=== PATIENT | female | born 1990 | race Caucasian/White ===

== ENCOUNTER 2020-05-10 12:13 | Emergency (ER) | payer OTHER, SELFPAY ==
[2020-05-10 12:20] VITALS: BP 146/92; PULSE 78; RESP 15; TEMP 37.1; O2SAT 96; BMI 43.9
[2020-05-10 12:21] VITALS: PULSE 74; O2SAT 97
[2020-05-10 12:22] VITALS: BP 146/92; PULSE 78; O2SAT 96
--- NOTE | 2020-05-10 12:26 | DI.US.S_ITS ---
PROCEDURE: US ABDOMEN LIMITED INDICATIONS: RUQ PAIN TECHNIQUE: Real-time focused scanning was performed of the abdomen, with image documentation. COMPARISON: None. FINDINGS: This study is limited by body habitus. No findings of gallstones or sludge are seen. The gallbladder wall is not thickened, measuring 3 mm or less. No specific pericholecystic fluid is seen. The sonographic Ferrer sign is negative. There is no biliary dilatation, the common bile duct measures 3 mm. The liver is normal in size and demonstrates no focal lesions. The pancreas is not well-seen. IMPRESSION: The gallbladder demonstrates a normal sonographic appearance. No biliary dilatation is seen. Dictated by: Freddie Stanford M.D. on 05/10/2020 at 12:10 Approved by: Freddie Stanford M.D. on 05/10/2020 at 12:11
--- NOTE | 2020-05-10 12:29 | ED_ITS ---
HPI - Abdominal Pain <PRATIMA Dunbar - Last Filed: 05/10/20 19:59> General Chief Complaint: Abdominal Pain Stated Complaint: Stomach Pain, Possible GallBladder Issue Time Seen by Provider: 05/10/20 12:24 Source: patient Mode of arrival: Ambulatory Limitations: no limitations History of Present Illness HPI narrative: 29yo female presents to the emergency department for epigastric pain. She states this occurred last night and has continued. Patient states the pain is mostly constant with a few intermittent episodes, she describes it as a sharp stabbing pain that radiates to her back. Pain is worse with palpation. Denies worsening pain with eating or drinking. Patient reports intermittent nausea. She denies fevers, chills, chest pain, shortness of breath, vomiting, diarrhea, blood in stool, burning in the chest, or other concerns. Patient denies any major abdominal surgeries or abdominal issues. She states this does not feel like heartburn, she has had heartburn in the past. 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 Related Data Allergies Allergy/AdvReac Type Severity Reaction Status Date / Time acetaminophen [From Vicodin] Allergy Verified 05/10/20 12:23 hydrocodone [From Vicodin] Allergy Verified 05/10/20 12:23 Review of Systems <PRATIMA Dunbar - Last Filed: 05/10/20 19:59> Review of Systems Narrative: REVIEW OF SYSTEMS: GENERAL: Denies fever, chills, malaise, or wt. loss. HENT: No head trauma. EYES: No vision changes. CARDIOVASCULAR: No chest pain. RESPIRATORY: No shortness of breath or cough. GASTROINTESTINAL: Complains of epigastric abdominal pain, see HPI GENITOURINARY: No flank pain, urinary incontinence, hesitancy, frequency, or dysuria. No vaginal discharge or dyspareunia. Denies concerns for STIs MUSCULOSKELETAL: No pain, weakness, or trauma. INTEGUMENTARY: No rash, lesions, or pruritus. NEURO: No numbness, tingling, memory loss, confusion, or headaches. PSYCH: No behavior or mood changes. Patient History <PRATIMA Dunbar - Last Filed: 05/10/20 19:59> Medical History No significant family history (Acute) Social History Smoking Status: Unknown if ever smoked Smoking Status: Unknown if ever smoked alcohol intake frequency: holidays/special occasions only Substance Use Type: does not use Exam <PRATIMA Dunbar - Last Filed: 05/10/20 19:59> Initial Vital Signs Initial Vital Signs: Vital Signs Temperature 98.8 F 05/10/20 12:20 Pulse Rate 78 05/10/20 12:20 Respiratory Rate 15 05/10/20 12:20 Blood Pressure 146/92 H 05/10/20 12:20 Pulse Oximetry 96 05/10/20 12:20 PHYSICAL EXAMINATION: GENERAL: Well groomed, alert, and cooperative. Answers questions promptly and appropriately. Vital signs noted. HENT: Normocephalic, atraumatic. Hearing intact. Oral mucosa is pink and moist. EYES: Conjunctiva pink, sclera white, no periorbital swelling. CARDIOVASCULAR: S1 and S2 sounds normal. Regular rate and rhythm, no murmurs, clicks, or bruits. No pedal edema. RESPIRATORY: Normal respiratory rate, trachea midline, airway patent. No stridor, nasal flaring or accessory muscle use. Lungs are clear in all flores without wheeze, rhonchi, or crackles. GASTROINTESTINAL: Bowel sounds normoactive. Epigastric tenderness, slight right upper quadrant tenderness. No organomegaly, no palpable masses. GENITALURINARY: No flank tenderness. MUSCULOSKELETAL: Normal gait and coordination. Equal tone and mass bilaterally. EXTREMITIES: CMS intact, no pedal edema. SKIN: Warm, dry, soft, appropriate color for ethnicity. NEURO: Alert and Oriented X 3. Good coordination. No ataxia, or sensory deficits, or cognitive issues. PSYCH: Appropriate affect and mood. <Nawaf Augustin DO - Last Filed: 05/11/20 06:59> Initial Vital Signs Initial Vital Signs: Vital Signs Temperature 98.8 F 05/10/20 12:20 Pulse Rate 78 05/10/20 12:20 Respiratory Rate 15 05/10/20 12:20 Blood Pressure 146/92 H 05/10/20 12:20 Pulse Oximetry 96 05/10/20 12:20 Course <PRATIMA Dunbar - Last Filed: 05/10/20 19:59> Course Course Narrative: Discussed with patient that labs and ultrasound were negative. CT recommended due to pain radiating to back to assess for other etiologies such as hernia or aortic aneurysm. Patient consented. Orders Ordered: Discontinued Medications Sodium Chloride (Normal Saline 0.9%) 500 mls @ 1,000 mls/hr IV BOLUS ONE Stop: 05/10/20 12:55 Last Infusion: 05/10/20 14:06 Dose: 0 mls/hr Documented by: Admin: 05/10/20 12:52 Dose: 1,000 mls/hr Documented by: KRISTINA Consultations Consultation #1: Patient staffed with Dr. Augustin discussed test, test results, and plan of care. Vital Signs Vital signs: Vital Signs - 8 hr 05/10/20 12:20 05/10/20 12:21 05/10/20 12:22 Temperature 98.8 F Pulse Rate 78 74 78 Respiratory Rate 15 Blood Pressure 146/92 H 146/92 H Pulse Oximetry 96 97 96 05/10/20 15:32 Temperature Pulse Rate 76 Respiratory Rate 16 Blood Pressure 152/95 H Pulse Oximetry 97 <Nawaf Augustin DO - Last Filed: 05/11/20 06:59> Orders Ordered: Discontinued Medications Sodium Chloride (Normal Saline 0.9%) 500 mls @ 1,000 mls/hr IV BOLUS ONE Stop: 05/10/20 12:55 Last Infusion: 05/10/20 14:06 Dose: 0 mls/hr Documented by: Admin: 05/10/20 12:52 Dose: 1,000 mls/hr Documented by: KRISTINA Vital Signs Vital signs: Vital Signs - 8 hr 05/10/20 12:20 05/10/20 12:21 05/10/20 12:22 Temperature 98.8 F Pulse Rate 78 74 78 Respiratory Rate 15 Blood Pressure 146/92 H 146/92 H Pulse Oximetry 96 97 96 05/10/20 15:32 Temperature Pulse Rate 76 Respiratory Rate 16 Blood Pressure 152/95 H Pulse Oximetry 97 MDM - Abdominal Pain <PRATIMA Dunbar - Last Filed: 05/10/20 19:59> Medical Records Attestation: I reviewed the patient's medical records. Lab Data Attestation: I reviewed the patient's lab results. Result diagrams: 05/10/20 12:30 05/10/20 12:30 Labs: Lab Results 05/10/20 05/10/20 Range/Units 12:30 12:30 WBC 9.0 (4.5-11.0) X10^3/uL RBC 4.46 (4.0-5.2) X10^6/uL Hgb 12.9 (12.0-16.0) g/dL Hct 38.5 (36-46) % MCV 86.3 (80-100) fL MCH 28.9 (26-34) PG MCHC 33.5 (30-36) % RDW 14.1 (11.6-14.8) % Plt Count 351 (150-400) X10^3/uL Neut % (Auto) 64.1 (50-75) % Lymph % (Auto) 25.5 (25-40) % [place] % (Auto) 6.6 (3-14) % Eos % (Auto) 2.5 (2-4) % Baso % (Auto) 1.3 (0-2) % Neut # (Auto) 5700 (2667-0141) /uL Lymph # (Auto) 2300 (3660-2415) /uL [place] # (Auto) 600 (0-900) /uL Eos # (Auto) 200 (0-450) /uL Baso # (Auto) 100 (0-100) /uL Sodium 137 (137-145) mmol/L Potassium 4.0 (3.4-5.1) mmol/L Chloride 104 (98-107) mmol/L Carbon Dioxide 26 (22-32) mmol/L BUN 17 (7-17) mg/dL Creatinine 0.65 (0.52-1.04) mg/dL Estimated GFR > 60.0 (>60) mL/min BUN/Creatinine Ratio 26.2 H (6-22) Glucose 87 (70-100) mg/dL Calcium 9.8 (8.4-10.2) mg/dL Total Bilirubin 0.4 (0.2-1.3) mg/dL AST 47 H (14-36) IU/L ALT 52 H (<35) IU/L Alkaline Phosphatase 90 (38-126) U/L Total Protein 7.8 (6.3-8.2) g/dL Albumin 4.2 (3.5-5.0) g/dL Globulin 3.6 (1.7-4.1) g/dL Albumin/Globulin Ratio 1.2 (1.0-2.8) Lipase 171 (23-300) U/L Point of care testing: Point of Care Testing Test Results Negative Urine Dip Bedside Urine Glucose Negative Bedside Urine Bilirubin - Negative Bedside Urine Ketone - Negative Urine Specific [place] 1.020 Bedside Urine Occult Blood +/- Bedside Urine pH 6.0 Bedside Urine Protein - Negative Bedside Urine Urobilinogen - Negative Bedside Urine Nitrite - Negative Bedside Urine Leukocytes - Negative Esterase Imaging Data US - abdomen: Radiologist's Impression: [address] [address] Ultrasound Report Signed Patient: Linn Rucker EMR#: [id number] : 1990Acct:[id number] Age/Sex: 29 / FDate of Service: 05/10/20 Loc: ED Accession Number: [id number] Procedure: US abdomen limited Ordering Provider: Misti Thomson PROCEDURE: US ABDOMEN LIMITED INDICATIONS: RUQ PAIN TECHNIQUE: Real-time focused scanning was performed of the abdomen, with image documentation. COMPARISON: None. FINDINGS: This study is limited by body habitus. No findings of gallstones or sludge are seen. The gallbladder wall is not thickened, measuring 3 mm or less. No specific pericholecystic fluid is seen. The sonographic Ferrer sign is negative. There is no biliary dilatation, the common bile duct measures 3 mm. The liver is normal in size and demonstrates no focal lesions. The pancreas is not well-seen. IMPRESSION: The gallbladder demonstrates a normal sonographic appearance. No biliary dilatation is seen. Dictated by: Freddie Stanford M.D. on 05/10/2020 at 12:10 Approved by: Freddie Stanford M.D. on 05/10/2020 at 12:11 CT scan - abdomen/pelvis: Radiologist's Impression: [address] [address] [address] Scan Report Signed Patient: Linn Rucker EMR#: [id number] : 1990Acct:[id number] Age/Sex: 29 / FDate of Service: 05/10/20 Loc: ED Accession Number: [id number] Procedure: CT abdomen pelvis w con Ordering Provider: Misti Thomson PROCEDURE: CT ABDOMEN PELVIS W CON INDICATIONS: Epigastric pain radiating to back TECHNIQUE: After the administration of intravenous contrast, 5 mm thick sections acquired from the diaphragm to the symphysis. 5 mm coronal and sagittal reformats were acquired. For radiation dose reduction, the following was used: automated exposure control, adjustment of mA and/or kV according to patient size. COMPARISON: [facility], , ABDOMEN LIMITED, 05/10/2020, 12:42. FINDINGS: Image quality: Excellent. ABDOMEN: Lung bases: Lung bases are clear. Heart size is normal. Solid organs: Liver is normal in size and enhancement. Gallbladder is normal. Biliary system is non dilated. Pancreas enhances normally. Spleen is normal in size and enhancement. No adrenal nodules. Kidneys demonstrate normal size and enhancement, without hydronephrosis. There are cortical scars superior pole of the left and right kidneys Peritoneum and bowel: Stomach is normal in size. Bowel loops demonstrate normal wall thickness and caliber. There is a large amount of stool in colon. There is focal short segment narrowing in the sigmoid colon. No free fluid or air. Nodes and vessels: No retroperitoneal or mesenteric adenopathy by size criteria. Aorta and inferior vena cava are normal in size. Miscellaneous: Small fat containing umbilical hernia is present. PELVIS: Genitourinary: Bladder wall appears mildly thickened. Uterus and ovaries are unremarkable. Suspect a 2.5 cm corpus pseudocyst in the left ovary. Miscellaneous: No inguinal hernias or adenopathy. Bones: No suspicious bony lesions. No vertebral body compression fractures. IMPRESSION: 1. No CT findings to explain epigastric pain. 2. Focal short segment narrowing of the sigmoid colon. Differential diagnoses include peristalsis versus a stricture. A followup CT is suggested with IV and oral contrast. 3. A large amount of stool is present in colon. 4. Mild thickening of the urinary bladder wall suggesting mild cystitis. 5. Renal cortical scars in the superior pole of kidneys bilaterally. Dictated by: Sahara Rizo M.D. on 05/10/2020 at 14:55 Approved by: Sahara Rizo M.D. on 05/10/2020 at 15:06 MDM Narrative Medical decision making narrative: 29yo female presenting to the emergency department with epigastric pain. Differential includes gastritis versus GERD versus viral etiology. Less likely gallbladder or pancreatic etiology due to negative ultrasound, lipase within normal limits. Less likely aortic aneurysm due to negative CT. Patient was given very strict return precautions for new or worsening symptoms. Patient does plan of care and verbalized understanding. <Nawaf Augustin DO - Last Filed: 05/11/20 06:59> Lab Data Labs: Lab Results 05/10/20 05/10/20 Range/Units 12:30 12:30 WBC 9.0 (4.5-11.0) X10^3/uL RBC 4.46 (4.0-5.2) X10^6/uL Hgb 12.9 (12.0-16.0) g/dL Hct 38.5 (36-46) % MCV 86.3 (80-100) fL MCH 28.9 (26-34) PG MCHC 33.5 (30-36) % RDW 14.1 (11.6-14.8) % Plt Count 351 (150-400) X10^3/uL Neut % (Auto) 64.1 (50-75) % Lymph % (Auto) 25.5 (25-40) % [place] % (Auto) 6.6 (3-14) % Eos % (Auto) 2.5 (2-4) % Baso % (Auto) 1.3 (0-2) % Neut # (Auto) 5700 (6632-3213) /uL Lymph # (Auto) 2300 (9641-8758) /uL [place] # (Auto) 600 (0-900) /uL Eos # (Auto) 200 (0-450) /uL Baso # (Auto) 100 (0-100) /uL Sodium 137 (137-145) mmol/L Potassium 4.0 (3.4-5.1) mmol/L Chloride 104 (98-107) mmol/L Carbon Dioxide 26 (22-32) mmol/L BUN 17 (7-17) mg/dL Creatinine 0.65 (0.52-1.04) mg/dL Estimated GFR > 60.0 (>60) mL/min BUN/Creatinine Ratio 26.2 H (6-22) Glucose 87 (70-100) mg/dL Calcium 9.8 (8.4-10.2) mg/dL Total Bilirubin 0.4 (0.2-1.3) mg/dL AST 47 H (14-36) IU/L ALT 52 H (<35) IU/L Alkaline Phosphatase 90 (38-126) U/L Total Protein 7.8 (6.3-8.2) g/dL Albumin 4.2 (3.5-5.0) g/dL Globulin 3.6 (1.7-4.1) g/dL Albumin/Globulin Ratio 1.2 (1.0-2.8) Lipase 171 (23-300) U/L Point of care testing: Point of Care Testing Test Results Negative Urine Dip Bedside Urine Glucose Negative Bedside Urine Bilirubin - Negative Bedside Urine Ketone - Negative Urine Specific [place] 1.020 Bedside Urine Occult Blood +/- Bedside Urine pH 6.0 Bedside Urine Protein - Negative Bedside Urine Urobilinogen - Negative Bedside Urine Nitrite - Negative Bedside Urine Leukocytes - Negative Esterase Discharge Plan Departure Patient Disposition: Home Clinical Impression: Abdominal pain Qualifiers: Abdominal location: epigastric Qualified Code(s): R10.13 - Epigastric pain Discharge Date/Time: 05/10/20 15:33 Instructions: DI for Abdominal Pain-Adult Activity Restrictions/Additional Instructions: Thank you for entrusting me with your care today. As discussed, your ultrasound is negative for any gallstones or gallbladder inflammation, your CT is negative for any cause of epigastric pain. However, there was incidental finding of narrowing of your sigmoid colon. Follow-up is suggested as you may need a repeat CT. There is also mild thickening of your bladder and renal cortical scars. Your liver enzymes were very slightly elevated this may be due to genetics. Other laboratory work is non-remarkable. I suggest taking [id number] Pepcid to help with the irritation. Please monitor symptoms closely, return to the emergency department for any new or worsening symptoms such as severe pain, chest pain, shortness of breath, or any other concerns. Follow-up with your primary care provider in 1-2 weeks for further evaluation if symptoms continue. <Nawaf Augustin DO - Last Filed: 05/11/20 06:59> Cosign ED Attending Cosignature Attestation: I was immediately available in the department for consultation. This documentation has been reviewed and I agree with assessment and plan. Supervised by Nawaf Augustin DO
[2020-05-10 12:41] LABS: Add Manual Diff / Slide Review NO; Basophils Absolute Auto 100 /uL (0-100); Basophils Percent Auto 1.3 % (0-2); Eosinophils Absolute Auto 200 /uL (0-450); Eosinophils Percent Auto 2.5 % (2-4); Hematocrit 38.5 % (36-46); Hemoglobin 12.9 g/dL (12.0-16.0); Lymphocytes Absolute Auto 2300 /uL (1100-4500); Lymphocytes Percent Auto 25.5 % (25-40); Mean Corpuscular HGB Conc 33.5 % (30-36); Mean Corpuscular Hemoglobin 28.9 PG (26-34); Mean Corpuscular Volume 86.3 fL (80-100); Monocytes Absolute Auto 600 /uL (0-900); Monocytes Percent Auto 6.6 % (3-14); Neutrophils Absolute Auto 5700 /uL (1500-7000); Neutrophils Percent Auto 64.1 % (50-75); Platelet Count 351 X10^3/uL (150-400); Red Blood Cell Count 4.46 X10^6/uL (4.0-5.2); Red Cell Distribution Width 14.1 % (11.6-14.8)
[2020-05-10 12:52] LABS: Alanine Aminotransferase 52 IU/L (<35); Albumin 4.2 g/dL (3.5-5.0); Albumin Globulin Ratio 1.2 (1.0-2.8); Alkaline Phosphatase 90 U/L (38-126); Aspartate Aminotransferase 47 IU/L (14-36); BUN Creatinine Ratio 26.2 (6-22); Bilirubin Total 0.4 mg/dL (0.2-1.3); Blood Urea Nitrogen 17 mg/dL (7-17); Calcium 9.8 mg/dL (8.4-10.2); Carbon Dioxide 26 mmol/L (22-32); Chloride 104 mmol/L (98-107); Estimated Glomerular Filt Rate > 60.0 mL/min (>60); Globulin 3.6 g/dL (1.7-4.1); Glucose 87 mg/dL (70-100); HEMOLYSIS < 15 (0-50); Lipase 171 U/L (23-300); Sodium 137 mmol/L (137-145); Total Protein 7.8 g/dL (6.3-8.2)
[2020-05-10] MEDS: SODIUM CHLORIDE 0.9% 500 ML 1000 ML IV (12:52)
--- NOTE | 2020-05-10 13:38 | DI.CT.S_ITS ---
PROCEDURE: CT ABDOMEN PELVIS W CON INDICATIONS: Epigastric pain radiating to back TECHNIQUE: After the administration of intravenous contrast, 5 mm thick sections acquired from the diaphragm to the symphysis. 5 mm coronal and sagittal reformats were acquired. For radiation dose reduction, the following was used: automated exposure control, adjustment of mA and/or kV according to patient size. COMPARISON: [facility], , ABDOMEN LIMITED, 05/10/2020, 12:42. FINDINGS: Image quality: Excellent. ABDOMEN: Lung bases: Lung bases are clear. Heart size is normal. Solid organs: Liver is normal in size and enhancement. Gallbladder is normal. Biliary system is non dilated. Pancreas enhances normally. Spleen is normal in size and enhancement. No adrenal nodules. Kidneys demonstrate normal size and enhancement, without hydronephrosis. There are cortical scars superior pole of the left and right kidneys Peritoneum and bowel: Stomach is normal in size. Bowel loops demonstrate normal wall thickness and caliber. There is a large amount of stool in colon. There is focal short segment narrowing in the sigmoid colon. No free fluid or air. Nodes and vessels: No retroperitoneal or mesenteric adenopathy by size criteria. Aorta and inferior vena cava are normal in size. Miscellaneous: Small fat containing umbilical hernia is present. PELVIS: Genitourinary: Bladder wall appears mildly thickened. Uterus and ovaries are unremarkable. Suspect a 2.5 cm corpus pseudocyst in the left ovary. Miscellaneous: No inguinal hernias or adenopathy. Bones: No suspicious bony lesions. No vertebral body compression fractures. IMPRESSION: 1. No CT findings to explain epigastric pain. 2. Focal short segment narrowing of the sigmoid colon. Differential diagnoses include peristalsis versus a stricture. A followup CT is suggested with IV and oral contrast. 3. A large amount of stool is present in colon. 4. Mild thickening of the urinary bladder wall suggesting mild cystitis. 5. Renal cortical scars in the superior pole of kidneys bilaterally. Dictated by: Sahara Rizo M.D. on 05/10/2020 at 14:55 Approved by: Sahara Rizo M.D. on 05/10/2020 at 15:06
[2020-05-10 15:32] VITALS: BP 152/95; PULSE 76; RESP 16; O2SAT 97
== END 2020-05-10 15:33 | disposition home or self-care (01) ==
PROVIDERS: Emergency Provider Nurse Practitioner
DX: R10.13 Epigastric pain (principal); M54.9 Dorsalgia, unspecified
CPT/HCPCS: 36415; 74177; 76705; 80053; 81003; 81025; 83690; 85025; 96360; 99284; Q9967

== ENCOUNTER 2020-06-28 19:14 | Emergency (ER) | payer OTHER, SELFPAY ==
[2020-06-28 19:32] VITALS: BP 137/66; PULSE 70; RESP 18; TEMP 36.9; O2SAT 98; BMI 47.3
--- NOTE | 2020-06-28 19:47 | ED_ITS ---
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 She was scrubbed in a Orthopedic surgery and during the surgery had blood splash onto her face and drip down into her right eye. Patient states she was wearing eye protection and a face mask at the time however she was somewhat leaning over when she was splashed and the blood went over the top of her glasses and down into her eye. She states that she irrigated her eye and an eye wash station for approximately 10 minutes prior to coming to the emergency department. Patient states that her last tetanus shot was 1.5 years ago. She states that she has had all 3 doses of the hepatitis B vaccine. Patient has no eye complaints at the time of the evaluation. Related Data Allergies Allergy/AdvReac Type Severity Reaction Status Date / Time acetaminophen [From Vicodin] Allergy Verified 05/10/20 12:23 hydrocodone [From Vicodin] Allergy Verified 05/10/20 12:23 Review of Systems Constitutional Comments: No complaints Eyes Eyes: Denies blurry vision, Denies change in vision, Denies eye discharge and Denies eye pain Cardiovascular Comments: No complaint Respiratory Comments: No complaint Integumentary/Breasts Skin/Breast: Denies lesions and Denies rash Patient History Medical History No significant family history (Acute) Social History Smoking Status: Unknown if ever smoked Smoking Status: Unknown if ever smoked alcohol intake frequency: holidays/special occasions only Substance Use Type: does not use Exam Initial Vital Signs Initial Vital Signs: Vital Signs Temperature 98.4 F 06/28/20 19:32 Pulse Rate 70 06/28/20 19:32 Respiratory Rate 18 06/28/20 19:32 Blood Pressure 137/66 06/28/20 19:32 Pulse Oximetry 98 06/28/20 19:32 Const General: cooperative and healthy appearing HENMT Head: normal to inspection and normocephalic Eyes General: appearance normal, both eyes and all related structures Resp Effort & Inspection: normal respiratory effort Skin Lesions: no lesions Rashes: no rashes Neuro General: patient alert and patient awake Cognition: normal cognition Speech: speech normal Extrem General: normal to inspection Course Orders Ordered: ED Orders 06/28/20 20:00 Alanine Aminotransferase Stat HIV 1 & 2 Ab/Ag 4th Gen Combo Stat Hepatitis C Virus Antibody Stat Test Serum,Qual Stat Discontinued Medications Dolutegravir Sodium (Tivicay) 50 mg PO NOW ONE Stop: 06/28/20 20:23 Last Admin: 06/28/20 20:40 Dose: 50 mg Documented by: GABY Emtricitabine/Tenofovir (Truvada 200 Mg-300 Mg Tablet) 1 each PO NOW ONE Stop: 06/28/20 20:25 Last Admin: 06/28/20 20:40 Dose: 1 each Documented by: GABY Vital Signs Vital signs: Vital Signs - 8 hr 06/28/20 19:32 06/28/20 20:50 Temperature 98.4 F 98.4 F Pulse Rate 70 69 Respiratory Rate 18 18 Blood Pressure 137/66 136/61 Pulse Oximetry 98 99 Medical Decision Making Lab Data Lab results reviewed: Yes I reviewed the patient's lab results. Labs: Lab Results 06/28/20 06/28/20 06/28/20 Range/Units 20:00 20:00 20:00 ALT 71 H (<35) IU/L Serum , Qual Negative (Negative) Hepatitis C Antibody Negative (NEGATIVE) s/c HIV 1&2 Ab/P24 Ag 4thGn Negative (NEGATIVE) MDM Narrative Medical decision making narrative: Patient is up-to-date on tetanus. Has had all 3 hepatitis B vaccinations. Blood from the source patient was drawn per report. I had no contact with this individual or with ordering or reviewing the source patient's blood draw or labs. Patient's test is negative. Patient provided consent for all blood draws here in the emergency department. Patient had no eye complaints the time of evaluation. We had a discussion regarding her exposure risk. I feel that this is fairly low risk given the nature of the event however it was blood exposure in a mucous membrane. Will start the patient on HIV post exposure prophylaxis. We discussed the risks and benefits of this drug treatment. Patient was given a prepack of 28 days of this medication. She took her 1st dose here in the emergency department. She was informed that she needed to contact her primary doctor, an employee health on Wednesday to follow up. She was given return precautions. She expressed understanding and agreement. Discharge Plan Departure Patient Disposition: Home Clinical Impression: Employee exposure to blood Discharge Date/Time: 06/28/20 20:50 Instructions: DI for Accidental Exposure to Body Fluids Activity Restrictions/Additional Instructions: You did have labs drawn today that will take a couple days to result. After our discussions you did opt to start to the HIV post exposure prophylaxis medications. You were given a prepack of these medications. Please start taking them as directed. On Wednesday contact your primary provider for a follow- up so that you can discuss the results of the lab test. Return to the emergency department for any new or worsening symptoms.
[2020-06-28 20:28] LABS: Alanine Aminotransferase 71 IU/L (<35)
[2020-06-28 20:32] LABS: Pregnancy Test Serum,Qual Negative (Negative)
[2020-06-28] MEDS: EMTRICITABINE PO (20:40)
[2020-06-28] MEDS: TENOFOVIR PO (20:40)
[2020-06-28] MEDS: DOLUTEGRAVIR 50 MG PO (20:40)
[2020-06-28 20:50] VITALS: BP 136/61; PULSE 69; RESP 18; TEMP 36.9; O2SAT 99
[2020-06-28 21:20] LABS: HIV 1 & 2 Ab/Ag 4th Gen Combo NEGATIVE (NEGATIVE); Hep C Virus Ab w/Reflex Quant NEGATIVE s/c (NEGATIVE)
[2020-06-30 09:56] LABS: Hepatitis B Surf Ab Qualitativ Reactive (.)
== END 2020-06-28 20:50 | disposition home or self-care (01) ==
PROVIDERS: Emergency Provider Emergency Medicine
DX: Z77.21 Contact with and (suspected) exposure to potentially hazardous body fluids (principal); Y99.0 Civilian activity done for income or pay
CPT/HCPCS: 36415; 84460; 84703; 86706; 86803; 87389; 99283; A9270

== ENCOUNTER → 2020-08-06 19:02 | Outpatient (CLI) | payer OTHER, SELFPAY | PROVIDERS: Referring Provider Internal Medicine; Visit Provider Internal Medicine | DX: Z23 Encounter for immunization (principal) | CPT/HCPCS: 90471; 90686 ==

== ENCOUNTER → 2020-08-15 09:02 | Outpatient (CLI) | payer OTHER, SELFPAY ==
[2020-08-15 10:23] LABS: COVID19 -Nasal RAPID Negative (Negative)
== END ==
PROVIDERS: Visit Provider Physician Assistant
DX: Z11.59 Encounter for screening for other viral diseases (principal)
CPT/HCPCS: 87635

== ENCOUNTER → 2020-10-08 14:19 | Outpatient (CLI) | payer OTHER, SELFPAY ==
[2020-10-08 15:23] LABS: COVID19 -Nasal RAPID Negative (Negative)
== END ==
PROVIDERS: Visit Provider Physician Assistant
DX: Z11.59 Encounter for screening for other viral diseases (principal)
CPT/HCPCS: 87635

== ENCOUNTER → 2020-10-31 09:31 | Outpatient (CLI) | payer OTHER, SELFPAY ==
[2020-10-31] MEDS: COVID-19 VACC(MODERNA-1)/PF 100 MCG/0.5 ML VIAL IM (09:38)
== END ==
PROVIDERS: Visit Provider Internal Medicine
DX: Z23 Encounter for immunization (principal)
CPT/HCPCS: 0011A; 91301

== ENCOUNTER → 2020-11-29 15:05 | Outpatient (CLI) | payer OTHER, SELFPAY ==
[2020-11-29] MEDS: COVID-19 VACC #2, MRNA(MOD) 100 MCG/0.5 ML VIAL IM (15:41)
== END ==
PROVIDERS: Visit Provider Internal Medicine
DX: Z23 Encounter for immunization (principal)
CPT/HCPCS: 0012A; 91301

== ENCOUNTER 2021-02-04 19:26 | Emergency (ER) | payer OTHER, SELFPAY ==
[2021-02-04 19:46] VITALS: BP 141/71; PULSE 89; RESP 17; TEMP 36.3; O2SAT 98; BMI 46.6
[2021-02-04 20:17] LABS: Alanine Aminotransferase 46 IU/L (<35)
[2021-02-04 21:17] LABS: HIV 1 & 2 Ab/Ag 4th Gen Combo NEGATIVE (NEGATIVE); Hep C Virus Ab w/Reflex Quant NEGATIVE s/c (NEGATIVE); Hepatitis B Surface Antigen NEGATIVE s/c (NEGATIVE)
--- NOTE | 2021-02-04 23:50 | ED_ITS ---
HPI - General Adult General Chief complaint: Blood/Body fluid exposure Stated complaint: cut while working, blood exposure Time Seen by Provider: 02/04/21 23:40 Source: patient Mode of arrival: Ambulatory History of Present Illness HPI narrative: Patient is a 30-year-old female who presents with right pinky finger injury. She was exposed to body fluids she cut herself with as surgical instrument a few hours ago. The site itself has already closed and healed it was very superficial. The source has been identified and tested. Patient states that hepatitis-B vaccine is up-to-date along with tetanus. She has no medical history except for depression Onset (ago): hour(s) Related Data Allergies Allergy/AdvReac Type Severity Reaction Status Date / Time acetaminophen [From Vicodin] Allergy Verified 05/10/20 12:23 hydrocodone [From Vicodin] Allergy Verified 05/10/20 12:23 Review of Systems Review of Systems Narrative: GENERAL: Denies chills,fever HEENT: Denies throat pain RESPIRATORY: Denies dyspnea, cough, wheezing CARDIOVASCULAR: Denies chest pain, palpitations GASTROINTESTINAL: Denies nausea, vomiting MUSCULOSKELETAL: Denies extremity pain, injury SKIN: See HPI NEUROLOGIC: Denies weakness, dizziness, headache, numbness 8 point review of systems is negative except for those stated above and HPI Patient History Medical History (Updated 02/04/21 @ 23:53 by Cami Gomez DO) Depression No significant family history Social History Smoking Status: Never smoker Smoking Status: Never smoker alcohol intake frequency: a few times a month Substance Use Type: does not use Exam Initial Vital Signs Initial Vital Signs: Vital Signs Temperature 97.4 F L 02/04/21 19:46 Pulse Rate 89 02/04/21 19:46 Respiratory Rate 17 02/04/21 19:46 Blood Pressure 141/71 H 02/04/21 19:46 Pulse Oximetry 98 02/04/21 19:46 GENERAL: Well-appearing, well-nourished and in no acute distress. CARDIOVASCULAR: peripheral pulses in tact, cap refill <2 sec RESPIRATORY: No respiratory distress, speaks in full sentences without difficulty EXTREMITIES: Normal range of motion, no clubbing or edema. Neurovascularly intact NEUROLOGICAL: Cranial nerves II through XII grossly intact. Normal gait and speech. SKIN: Warm, dry, no petechiae, no rashes or lesions. Right 5th finger superficial injury noted site has already closed and healed Course Vital Signs Vital signs: Vital Signs - 8 hr 02/04/21 19:46 Temperature 97.4 F L Pulse Rate 89 Respiratory Rate 17 Blood Pressure 141/71 H Pulse Oximetry 98 Medical Decision Making Lab Data Lab results reviewed: Yes I reviewed the patient's lab results. Labs: Lab Results 02/04/21 02/04/21 Range/Units 19:52 19:52 ALT 46 H (<35) IU/L Hep Bs Antigen Negative (NEGATIVE) s/c Hepatitis C Antibody Negative (NEGATIVE) s/c HIV 1&2 Ab/P24 Ag 4thGn Negative (NEGATIVE) Discharge Plan Departure Patient Disposition: Home Clinical Impression: Exposure to body fluid Injury of right little finger Qualifiers: Encounter type: initial encounter Qualified Code(s): S69.91XA - Unspecified injury of right wrist, hand and finger(s), initial encounter Instructions: DI for Accidental Exposure to Body Fluids Activity Restrictions/Additional Instructions: *You have been diagnosed with body fluid exposure right pinky injury *What to do: Please follow-up with her primary care provider he may need more t esting *Continue to take medications as directed *Follow up with your primary care provider in 2-3 days *Return to ER if you should have any new, worsening or concerning symptoms
[2021-02-05] VITALS: PULSE 76; RESP 16; TEMP 36.7; O2SAT 99
[2021-02-06 04:01] LABS: Hepatitis B Surf Ab Qualitativ Non Reactive (.)
== END 2021-02-05 00:01 | disposition home or self-care (01) ==
PROVIDERS: Emergency Provider Emergency Medicine
DX: S61.216A Laceration without foreign body of right little finger without damage to nail, initial encounter (principal); Z77.21 Contact with and (suspected) exposure to potentially hazardous body fluids; W26.8XXA Contact with other sharp object(s), not elsewhere classified, initial encounter; Y99.0 Civilian activity done for income or pay
CPT/HCPCS: 36415; 99283

== ENCOUNTER → 2021-08-21 | Outpatient (CLI) | payer OTHER, SELFPAY | PROVIDERS: Referring Provider Internal Medicine; Visit Provider Internal Medicine | DX: Z23 Encounter for immunization (principal) | CPT/HCPCS: 90471; 90686 ==

== ENCOUNTER → 2021-09-05 08:27 | Outpatient (CLI) | payer OTHER, SELFPAY ==
[2021-09-05] MEDS: COVID-19 VACC #3, MRNA(MOD) 50 MCG/0.25 ML VIAL IM (08:35)
== END ==
PROVIDERS: Visit Provider Internal Medicine
DX: Z23 Encounter for immunization (principal)
CPT/HCPCS: 0013A; 91301